=== PATIENT | female | born 1985 | race Asian ===

== ENCOUNTER → 2025-04-02 | Outpatient (CLI) | payer OTHER, SELFPAY ==
--- NOTE | 2025-04-02 08:03 | XR_ITS ---
Examination: Duplex scan of the upper extremity, unilateral right Date and time of exam: April 02, 2025 0806 hours INDICATIONS: Right arm swelling and pain beginning 10 days ago Technique: Duplex scan of the extremity veins using B-mode/grayscale imaging and Doppler spectral analysis and color flow Attention is directed to internal echogenicity, compression and augmentation involving these veins, color flow assessment, spectral analysis Findings: Major deep venous structures in the extremity demonstrate normal course and caliber. There is no evidence of deep vein thrombosis. Normal color flow and spectral analysis There is occlusive thrombus in the superficial cephalic vein Impression: Negative for DVT.. Positive for occlusive thrombus in the superficial cephalic vein
== END | disposition home or self-care (01) ==
LOC: SDIM 07:55
PROVIDERS: PCP Internal Medicine; Referring Provider Internal Medicine; Visit Provider Internal Medicine
DX: I82.601 Acute embolism and thrombosis of unspecified veins of right upper extremity (principal)
CPT/HCPCS: 93971